=== PATIENT | female | born 1950 | race Caucasian/White ===

== ENCOUNTER 2024-04-16 17:35 | Emergency (ER) | payer MEDICARE, SELFPAY ==
[2024-04-16 17:48] VITALS: BP 161/109
--- NOTE | 2024-04-16 17:54 | ED.PDOC.TR ---
ED Provider Triage
-
Patient seen by provider in Triage?: Seen in Triage
This is a medical evaluation conducted in person to initiate diagnostic evaluation and provide initial therapeutics. Please see further documentation by the treating clinician.&
74-year-old female presenting to the emergency department today with concerns of fever today. She was diagnosed with a UTI after she had some suprapubic discomfort and urgency yesterday. She took 2 doses of Macrobid. She claims that she felt
somewhat sick today with nausea and had a temperature of 102 home. This prompted her to come to the ER. She did call her primary care doctor that suggested coming to the ER. In general here no significant reproducible pain to the abdomen no
significant CVA tenderness. Concern for potential worsening UTI urinalysis and labs ordered at this point.
[2024-04-16 18:04] LABS: % Basophils 0.3 % (0-2); % Immature Granulocytes 0.6 % (0-0.5); % Lymphocytes 4.5 % (20.5-51.1); % Monocytes 5.5 % (1.7-9.3); % Neutrophils 87.1 % (42.2-75.2); Absolute Eosinophils 0.2 10^3/uL (0-0.7); Absolute Immature Granulocytes 0.1 10^3/uL (0-0.05); Absolute Lymphocytes 0.5 10^3/uL (1.2-3.4); Absolute Monocytes 0.6 10^3/uL (0.1-0.6); Absolute Neutrophils 9.4 10^3/uL (1.4-6.5); Hematocrit 37.1 % (37.0-47.0); Hemoglobin 12.8 g/dL (12.0-16.0); Mean Corp Hgb Conc. 34.5 g/dL (33.0-37.0); Mean Corpuscular Hgb 29.6 pg (27.0-31.0); Mean Corpuscular Volume 85.7 fL (81.0-99.0); Mean Platelet Volume 9.1 fL (7.4-10.4); Nucleated Red Blood Cells % 0 %; Platelet Count 214 10^3/uL (130-400); Red Blood Cell Count 4.33 10^6/uL (4.20-5.40); Red Cell Dist. Width 12.5 % (11.5-14.5); White Blood Cell Count 10.8 10^3/uL (4.8-10.8)
[2024-04-16 18:16] LABS: Lactic Acid 0.8 mmol/L (0.7-2.0)
[2024-04-16 18:43] LABS: ALT (SGPT) 17 U/L (0-35); AST (SGOT) 23 U/L (14-36); Albumin 4.3 g/dl (3.5-5.0); Alkaline Phosphatase 58 U/L (38-126); Blood Urea Nitrogen 20 mg/dl (7-17); Calcium 9.6 mg/dl (8.4-10.2); Carbon Dioxide 23 mmol/L (22-30); Chloride 102 mmol/L (98-107); Glucose 113 mg/dl (70-99); Sodium 137 mmol/L (135-145); Total Bilirubin 0.8 mg/dl (0.2-1.3); Total Protein 6.9 g/dl (6.3-8.2); eGFR > 60.00
--- NOTE | 2024-04-16 19:41 | ED.GENMED ---
History of Present Illness
General
Chief Complaint: Fever
Source: patient
Exam Limitations: none
Time Seen by Provider: 04/16/24 19:27
Travel History
Have you had any contact with someone who has COVID-19?: No
Do you have any symptoms of coronavirus? Fever > 100 degrees, chills, cough, shortness of breath, sore throat, loss of taste or smell, muscle aches, or headache?: Yes
Symptoms:: fever
History of Present Illness
History of Present Illness:
This is a 74 year old female that comes in with c/o urinary symptoms. States that she was just not feeling well on Sunday. States that on Sunday she still was not feeling well so she went to the PCP on Sunday at 3pm. States that she thought it was
just constipation. States that she had been getting up to the BR through the night and sometimes she would go and then other times she would not go and would then feel when she got back in bed that she needed to go again. State that she was given an
antibiotic yesterday. States that today she had a fever of 99.0 and at 4pm she took Tylenol and went to lay down. State that she was feeling shaky when she got up and her temp was 103. States that she called the PCP and was told that they could
change her to Cipro or come to the ER. States that she had fever with chills, nausea, headache, lightheaded and lower abd pain. Denies any chest pain, SOB, vomiting, diarrhea, urinary burning.
Past History
Past History
ED Past Medical History: Cancer (Skin), GERD, HTN, Hypercholesterolemia, Psychiatric (Anxiety) and Other (Diverticulosis)
ED Past Surgical History: Appendectomy, Orthopedic (L5 laminectomy, Left shoulder ) and Tonsilectomy
Social History
Tobacco: Former smoker
Alcohol: None
Personal:
Living: with family
Review of Systems
Review of Systems
All Other Systems: ROS reviewed and negative except as documented in HPI and ROS
Constitutional: Reports fever and chills
EENT: Reports no symptoms
Respiratory: Reports no symptoms; Denies cough or trouble breathing
Cardiac: Reports no symptoms; Denies chest pain
ABD/GI: Reports nausea; Denies abdominal pain, vomiting or diarrhea
: Reports difficulty voiding; Denies dysuria, frequency or urgency
Musculoskeletal: Reports no symptoms
Skin: Reports no symptoms
Neurological: Reports headache and other (Lightheaded); Denies dizzy
Psychiatric: Reports no symptoms
Phy Exam
General Physical Exam
General Presentation: no apparent distress
General age: appears stated age
General Skin: warm and dry
General Habitus: elderly
General Mental: alert
General Hydration: appears well hydrated
ENT Exam
ENT Exam: TM's normal, pharynx normal and neck supple
Eye Exam
Eye Exam: EOMI
Cardiovascular Exam
Cardiovascular Exam: regular rate/rhythm, no edema, no murmur and normal peripheral pulses
Pulmonary Exam
Pulmonary Exam: lungs clear, no respiratory distress, no rales, chest non tender, no crackles, no rhonchi, no wheezing and no cough
Gastrointestinal Exam
Gastrointestinal Exam: normal bowel sounds, soft, no organomegaly, no pulsatile mass, non distended and tender (right sided abd tenderness with palpation and suprapubic tenderness)
Musculoskeletal Exam
Musculoskeletal Exam: full ROM and no edema
Skin Exam
Skin Exam: normal color, warm/dry, no rash and no petechia
Psychiatric Exam
Psychiatric Exam: normal mood/affect
Course
Orders/Labs/Results
Orders:
Orders
04/16/24 17:58
Complete Blood Count/With Diff Urgent
Comprehensive Metabolic Panel Urgent
Lactic Acid Urgent
04/16/24 19:40
0.9% Sodium Chloride 1000 ml [Nss] 1,000 ml IV BOLUS
Ondansetron Injectable [Zofran] 4 mg IV NOW STA
04/16/24 19:41
CT Abd/pelvis W Iv Cont Urgent
Comment:
Reason For Exam: Right sided abd pain
04/16/24 19:56
COVID-19 Antigen Urgent
Source: Nasal Swab
Lactic Acid Urgent
Urinalysis Reflex To Culture Urgent
Date Specimen was Collected: 04/16/24
Time Specimen was Collected: 19:31
Urine Microscopic Reflex Cult Urgent
Blood Culture Q30M
BRIDGER Source: Blood/Venous
Specimen Description:
Blood Culture Q30M
BRIDGER Source: Blood/Venous
Specimen Description:
Abnormal Lab Results
04/16/24 04/16/24
17:58 19:56
Abs Immat Gran (auto) 0.1 H 10^3/uL
(0-0.05)
Absolute Neuts (auto) 9.4 H 10^3/uL
(1.4-6.5)
Absolute Lymphs (auto) 0.5 L 10^3/uL
(1.2-3.4)
Immature Gran % 0.6 H %
(0-0.5)
Neutrophils % 87.1 H %
(42.2-75.2)
Lymphocytes % 4.5 L %
(20.5-51.1)
BUN 20 H mg/dl
(7-17)
Glucose 113 H mg/dl
(70-99)
Urine Ketones Trace A
(Negative)
Ur Occult Blood Reflex 3+ A
(Negative)
Urine RBC 3-6 A /HPF
(0-2)
04/16/24 17:58
04/16/24 17:58
Dehydration, Glucose nonfasting. Urine negative for infectioin (Patient has started antibiotics for this since yesterday)
Vital Signs
Initial and Last Documented VS:
Initial Vital Signs
Temp Pulse Resp BP Pulse Ox
99.0 F 104 18 161/109 97
04/16/24 17:48 04/16/24 17:48 04/16/24 17:48 04/16/24 17:48 04/16/24 17:48
Last Documented Vital Signs
Temp Pulse Resp BP Pulse Ox
99.0 F 104 18 161/109 97
04/16/24 17:48 04/16/24 17:48 04/16/24 17:48 04/16/24 17:48 04/16/24 17:48
MDM/Problems Addressed
Differential Diagnosis Includes:
Obstructing renal calculus, UTI, Urosepsis, Appendicitis
MDM/Problems Addressed:
This is a 74 year old female that comes in with c/o fever, lower abd pain. States that she started to not feel well on Sunday. States that she went to the PCP and was told that she has a UTI and started on antibiotics. States that she only had 2
doses and today she started with a fever.
Will check labs. IV fluids and get CT to r/o any renal calculus obstruction
Back to see patient. Explained that her blood work shows dehydrated and her CT is negative for any acute process. Patient to increase her water intake to 8-8oz glasses daily. Take the antibiotic that was prescribed and follow up with the family
doctor after she has complete the antibiotic for repeat urine.Tylenol or Ibuprofen for fever. Return with any concerns.
Chronic conditions affecting care:
NA
Acute Exacerbation and/or Progression of Chronic Illness:
NA
*Radiology
Radiology exam reviewed: radiology read reviewed (CT-No acute pathology of the abd or pelvis. Hepatic cysts. Moderate hiatal hernia. Diverticulosis. Moderate fecal material in the colon)
*Pulse Oximetry
Patient hypoxic: no
*EKG
Interpreted by ED Provider?: NA
Rate: EKG- N/A
*Hazardous Substances Scientist Interpretation
Rate: Hazardous Substances Scientist- N/A
*Critical Care Note
Total Time (30-74mins, 75-104mins- exclusive of procedures): Not Applicable
ED Attending Note
-
Portions of this chart may have been created with voice recognition software.� Occasional wrong word or��sound alike� substitutions may have occurred due to the inherent limitations of voice recognition software.
Discharge Plan
Departure
Patient Disposition: Home (Routine Discharge)
Date of Disposition: 04/16/24
Time of Disposition: 23:46
Patient with high blood pressure during this ER visit?: Yes
Condition: Good
Covid-19: Not Applicable
Discharge Problem:
Fever
Instructions: Fever, Adult (DC), BLOOD PRESSURE
Prescriptions:
No Action
lorazepam 0.5 MG tablet
0.5 mg PO PRN PRN (Reason: Anxiety)
rosuvastatin 5 MG tablet
5 mg PO QPM
sr-pyy-myagp-calcium carb-K1 [Women's 50 Plus Multivitamin] 1 EACH tablet
1 ea PO DAILY
Ca carb-D3-mag pn-qec-vauk-Zn [Caltrate-D3 Plus Minerals] 1 EACH tablet
1 ea PO DAILY
mupirocin 1 APPLIC ointment
1 applic topical BID Qty: 1 0RF
Patient Comments:
started treatment sunday03/07/22 and was taking BID last took at home 03/10/22 in am
sennosides [senna] 1 TABLET tablet
2 tab PO BID 0RF
aspirin 325 MG tablet
325 mg PO DAILY 0RF
magnesium hydroxide 30 ML suspension
30 ml PO DAILYPRN PRN (Reason: constipation) 0RF
acetaminophen [Tylenol Extra Strength] 500 MG tablet
1,000 mg PO QID Qty: 0 0RF
lisinopril [Zestril] 30 MG tablet
40 mg PO QPM Qty: 0 0RF
Rx Instructions:
HOLD SYSTOLIC BLOOD PRESSURE <130 IF TAKING OXY
gabapentin 300 MG capsule
300 mg PO BID Qty: 0 0RF
lansoprazole 15 MG tablet,disintegrat, delay rel
15 mg PO DAILY Qty: 0 0RF
Rx Instructions:
TAKE DAILY WHILE ON ASA AND MELOXICAM
oxycodone 5 MG tablet
5 mg PO Q6HPRN PRN (Reason: moderate-severe pain) Qty: 30 0RF
Rx Instructions:
1 tab moderate pain or 2 if pain severe
Dx total joint replacement
ongoing therapy
meloxicam [Mobic] 15 MG tablet
15 mg PO DAILY Qty: 30 0RF
Rx Instructions:
take with food
space out 2 hours from aspirin
Referrals:
Marissa Ware PA-C [Family Provider] - Call in 1-3 days for appt
Activity Restrictions/Additional Instructions:
As discussed, your blood work shows you are dehydrated. Please increase your water intake to 8-8oz glasses daily. Continue with the antibiotic that you have given. Follow up with the family doctor after you have finished your antibiotic. You may use
Tylenol or Ibuprofen for fever. Your CT was negative for any acute disease process. IF YOU HAVE ANY OTHER CONCERNS PLEASE RETURN TO THE EMERGENCY ROOM.
Interventions
Interventions:
ED-Female Genitourinary Assessment Last Done: 04/16/24 20:04
ED- Neurological Assessment Last Done: 04/16/24 20:04
ED-Skin Assessment Last Done: 04/16/24 20:04
Discharge Date and Time
Print Language: AFGHAN
[2024-04-16] MEDS: NSS 1000 IV (19:59)
[2024-04-16] MEDS: ZOFRAN 4 MG IV (19:59)
[2024-04-16 20:15] LABS: Lactic Acid 1.3 mmol/L (0.7-2.0)
[2024-04-16 20:22] LABS: COVID-19 Antigen Negative (Negative)
[2024-04-16 20:24] LABS: Urine Albumin Negative (Neg - Trace); Urine Bilirubin Negative (Negative); Urine Character Clear (Clear); Urine Color Yellow; Urine Glucose Negative (Negative); Urine Ketone Trace (Negative); Urine Leukocyte Negative (Negative); Urine Nitrite Negative (Negative); Urine Occult Blood 3+ (Negative); Urine Specific Gravity 1.015 (<1.030); Urine Urobilinogen Negative (Neg - 1+)
[2024-04-16 20:31] LABS: Urine White Cell 0-2 /HPF (0-5)
[2024-04-16 23:47] VITALS: BP 145/89
== END 2024-04-16 23:57 | disposition home or self-care (01) ==
LOC: EMR 17:35
PROVIDERS: Clinical Nurse Specialist Family Health; Physician Assistant; EMERGENCY PHYSICIAN Emergency Medicine; FAMILY PHYSICIAN Student in an Organized Health Care Education/Training Program
DX: R50.9 Fever, unspecified (principal); E86.0 Dehydration; R51.9 Headache, unspecified; R10.30 Lower abdominal pain, unspecified; R11.0 Nausea; N39.0 Urinary tract infection, site not specified; Z11.52 Encounter for screening for COVID-19; I10 Essential (primary) hypertension; K21.9 Gastro-esophageal reflux disease without esophagitis; E78.00 Pure hypercholesterolemia, unspecified; K76.89 Other specified diseases of liver; K57.90 Diverticulosis of intestine, part unspecified, without perforation or abscess without bleeding; K44.9 Diaphragmatic hernia without obstruction or gangrene; F41.9 Anxiety disorder, unspecified; Z85.828 Personal history of other malignant neoplasm of skin; Z87.891 Personal history of nicotine dependence
CPT/HCPCS: 99285; 96361; 96374; 74177; 80053; 81003; 81015; 83605; 85025; 87040; 87811; Q9967

== ENCOUNTER → 2024-07-09 17:07 | Outpatient (REF) | payer MEDICARE, SELFPAY ==
[2024-07-09 17:52] LABS: % Basophils 0.3 % (0-2); % Eosinophils 1.1 % (0-6); % Immature Granulocytes 0.4 % (0-0.5); % Lymphocytes 16.1 % (20.5-51.1); % Monocytes 9.2 % (1.7-9.3); % Neutrophils 72.9 % (42.2-75.2); Absolute Eosinophils 0.2 10^3/uL (0-0.7); Absolute Immature Granulocytes 0.1 10^3/uL (0-0.05); Absolute Lymphocytes 2.3 10^3/uL (1.2-3.4); Absolute Monocytes 1.3 10^3/uL (0.1-0.6); Absolute Neutrophils 10.6 10^3/uL (1.4-6.5); Hematocrit 38.8 % (37.0-47.0); Hemoglobin 13.2 g/dL (12.0-16.0); Mean Corpuscular Hgb 30.5 pg (27.0-31.0); Mean Corpuscular Volume 89.6 fL (81.0-99.0); Mean Platelet Volume 9.4 fL (7.4-10.4); Nucleated Red Blood Cells % 0 %; Platelet Count 237 10^3/uL (130-400); Red Blood Cell Count 4.33 10^6/uL (4.20-5.40); Red Cell Dist. Width 13.2 % (11.5-14.5); White Blood Cell Count 14.5 10^3/uL (4.8-10.8)
[2024-07-09 18:14] LABS: ALT (SGPT) 20 U/L (0-35); AST (SGOT) 23 U/L (14-36); Albumin 4.6 g/dl (3.5-5.0); Alkaline Phosphatase 67 U/L (38-126); Blood Urea Nitrogen 17 mg/dl (7-17); Calcium 9.8 mg/dl (8.4-10.2); Carbon Dioxide 28 mmol/L (22-30); Chloride 101 mmol/L (98-107); Glucose 97 mg/dl (70-99); Potassium 4.2 mmol/L (3.5-5.1); Sodium 141 mmol/L (135-145); Total Protein 7.2 g/dl (6.3-8.2); eGFR > 60.00
== END ==
LOC: REG 17:07
PROVIDERS: ATTENDING PHYSICIAN Student in an Organized Health Care Education/Training Program; FAMILY PHYSICIAN Physician Assistant Medical
DX: R74.8 Abnormal levels of other serum enzymes (principal); R10.32 Left lower quadrant pain
CPT/HCPCS: 36415; 80053; 85025

== ENCOUNTER → 2024-07-10 09:12 | Outpatient (REF) | payer MEDICARE, SELFPAY | LOC: HWRAD 09:12 | PROVIDERS: ATTENDING PHYSICIAN Physician Assistant Medical; FAMILY PHYSICIAN Student in an Organized Health Care Education/Training Program | DX: R10.32 Left lower quadrant pain (principal) | CPT/HCPCS: 74177; Q9967 ==

== ENCOUNTER → 2024-09-16 06:26 | Day surgery (SDC) | payer MEDICARE, SELFPAY | LOC: GI 06:26 | PROVIDERS: ATTENDING PHYSICIAN Internal Medicine Gastroenterology; FAMILY PHYSICIAN Family Medicine | DX: Z12.11 Encounter for screening for malignant neoplasm of colon (principal); K64.0 First degree hemorrhoids; D12.5 Benign neoplasm of sigmoid colon; K57.30 Diverticulosis of large intestine without perforation or abscess without bleeding; Z83.719 Family history of colon polyps, unspecified | CPT/HCPCS: 45385; 45380; 88305 ==

== ENCOUNTER → 2025-05-07 13:35 | Outpatient (REF) | payer MEDICARE, SELFPAY | LOC: HWWDC 13:35 | PROVIDERS: ATTENDING PHYSICIAN Obstetrics & Gynecology Gynecology; FAMILY PHYSICIAN Student in an Organized Health Care Education/Training Program | DX: Z12.31 Encounter for screening mammogram for malignant neoplasm of breast (principal) | CPT/HCPCS: 77063; 77067 ==